=== PATIENT | male | born 1990 | race Caucasian/White ===

== ENCOUNTER 2018-02-17 18:57 | Emergency (ER) | payer SELFPAY ==
[~2018-02-17] VITALS: Ht 162.6 cm; Wt 53.1 kg
[~2018-02-17 18:57] MED LIST: HYDPAM50 PO; Naprosyn500 MG PO; Veetids 500500 MG PO
== END 2018-02-17 21:07 | disposition home or self-care (01) ==
LOC: ER 18:57
DX: S70.12XA Contusion of left thigh, initial encounter (principal); V23.4XXA Motorcycle driver injured in collision with car, pick-up truck or van in traffic accident, initial encounter; F17.200 Nicotine dependence, unspecified, uncomplicated
CPT/HCPCS: 73562-LT; 99283

== ENCOUNTER 2018-04-14 18:05 | Emergency (ER) | payer MEDICAID ==
[~2018-04-14] VITALS: Ht 162.6 cm; Wt 53.1 kg
== END 2018-04-14 19:16 | disposition home or self-care (01) ==
LOC: ER 18:05
DX: S63.91XA Sprain of unspecified part of right wrist and hand, initial encounter (principal); W22.8XXA Striking against or struck by other objects, initial encounter; F17.200 Nicotine dependence, unspecified, uncomplicated
CPT/HCPCS: 73130; 99283